=== PATIENT | female | born 1985 | race Caucasian/White ===

== ENCOUNTER 2020-08-07 15:06 | Outpatient (REF) | payer OTHER, SELFPAY ==
[2020-08-08 21:57] LABS: C. trachomatis RNA TMA NOT DETECTED (NOT DETECTED); N. gonorrhoeae RNA TMA NOT DETECTED (NOT DETECTED)
== END 2020-08-07 15:07 | disposition home or self-care (01) ==
LOC: HO.LAB 15:06
PROVIDERS: PCP Internal Medicine; Referring Provider Internal Medicine; Visit Provider Advanced Practice Midwife
DX: Z01.411 Encounter for gynecological examination (general) (routine) with abnormal findings (principal); N80.9 Endometriosis, unspecified; Z20.2 Contact with and (suspected) exposure to infections with a predominantly sexual mode of transmission
CPT/HCPCS: 87491; 87591

== ENCOUNTER 2021-06-12 11:37 | Outpatient (REF) | payer OTHER, SELFPAY ==
[2021-06-12 16:34] LABS: Hematocrit 42.3 % (37.0-47.0); Hemoglobin 14.2 g/dl (12.0-16.0); Mean Corpuscular HGB Conc 33.6 g/dl (31.0-35.0); Mean Corpuscular Hemoglobin 31.1 pg (27.0-33.0); Mean Corpuscular Volume 92.6 fL (80.0-98.0); Mean Platelet Volume 10.9 fL (9.4-12.3); Platelet Count 276 X10*3/uL (160-400); Red Blood Count 4.57 X10*6/uL (4.20-5.50); White Blood Count 8.9 X10*3/uL (4.8-10.8)
[2021-06-12 17:42] LABS: TSH reflex Free T4 1.73 uIU/mL (0.32-4.0)
[2021-06-12 17:43] LABS: HCG Quantitative 3 mIU/mL
[2021-06-13 10:09] LABS: CT PCR NOT DETECTED (Not Detect.); NG PCR NOT DETECTED (Not Detect.)
== END 2021-06-12 11:38 | disposition home or self-care (01) ==
LOC: HO.LAB 11:37
PROVIDERS: PCP Internal Medicine; Visit Provider Obstetrics & Gynecology
DX: Z11.3 Encounter for screening for infections with a predominantly sexual mode of transmission (principal); N93.9 Abnormal uterine and vaginal bleeding, unspecified; N80.9 Endometriosis, unspecified
CPT/HCPCS: 36415; 84443; 84702; 85027; 87491; 87591

== ENCOUNTER 2021-07-24 10:07 | Outpatient (REF) | payer OTHER, SELFPAY ==
--- NOTE | ~2021-07-24 | US_ITS ---
EXAMINATION: US PELVIS CLINICAL INFORMATION: Abnormal uterine and vaginal bleeding. COMPARISON: History of endometritis. TECHNIQUE: Ultrasound of the pelvis is performed using both transabdominal and transvaginal transducers along with Doppler. Transvaginal imaging is performed due to inadequate visualization transabdominally. FINDINGS: Uterus: The uterus is anteverted and measures 8.5 cm in length, 3.7 cm AP and 4.1 cm in transverse dimension. The double wall endometrial thickness is 0.58 cm. The uterus is smooth in contour and has normal myometrial echogenicity. No visible fibroid. Adnexa: Both ovaries are visualized. There is normal color flow to the adnexa. There is no ovarian torsion. There is no pelvic ascites or fluid collection. Right ovary measures 3.3 x 1.5 x 1.7 cm cm. Volume 4.5 mL. Left ovary measures 3.8 x 2.2 x 2.1 cm. Volume 8.9 mL. There is solid isoechoic to hyperechoic lesion in the left ovary measuring 1.7 x 1.7 x 1.7 cm likely hemorrhagic cyst or corpus luteal cyst. There is no free fluid in the cul-de-sac. US/US pelvic and transvaginal IMPRESSION: Isoechoic to hyperechoic solid lesion left ovary likely hemorrhagic or corpus luteal cyst. Recommend follow-up ultrasound pelvis after 2 or 3 cycles.
== END 2021-07-24 10:08 | disposition home or self-care (01) ==
LOC: HO.HMGCX 10:07
PROVIDERS: PCP Internal Medicine; Visit Provider Obstetrics & Gynecology
DX: N93.9 Abnormal uterine and vaginal bleeding, unspecified (principal)
CPT/HCPCS: 76830; 76856

== ENCOUNTER 2021-07-31 10:17 | Outpatient (REF) | payer OTHER, SELFPAY | END 2021-07-31 10:18 | disposition home or self-care (01) | LOC: HO.LAB 10:17 | PROVIDERS: PCP Internal Medicine; Visit Provider Obstetrics & Gynecology | DX: N93.9 Abnormal uterine and vaginal bleeding, unspecified (principal) | CPT/HCPCS: 58100; 88305 ==

== ENCOUNTER → 2021-08-15 15:29 | Outpatient (BNVA) | payer OTHER, SELFPAY | PROVIDERS: PCP Internal Medicine; Visit Provider Obstetrics & Gynecology ==

== ENCOUNTER 2021-08-29 08:34 | Outpatient (REF) | payer OTHER, SELFPAY ==
[2021-08-29 09:50] LABS: HCG Quantitative < 2 mIU/mL
== END 2021-08-29 08:35 | disposition home or self-care (01) ==
LOC: HO.LAB 08:34
PROVIDERS: PCP Internal Medicine; Visit Provider Obstetrics & Gynecology
DX: N93.9 Abnormal uterine and vaginal bleeding, unspecified (principal)
CPT/HCPCS: 36415; 84702

== ENCOUNTER → 2021-08-30 10:59 | Outpatient (BNVA) | payer OTHER, SELFPAY | PROVIDERS: PCP Internal Medicine; Visit Provider Obstetrics & Gynecology ==

== ENCOUNTER 2021-10-15 15:25 | Outpatient (REF) | payer OTHER, SELFPAY ==
--- NOTE | ~2021-10-15 | US_ITS ---
EXAMINATION: US PELVIS CLINICAL INFORMATION: This is a 35-year-old female with an ovarian cyst. History of endometriosis. History of tubal ligation. COMPARISON: Comparison is made to the previous study dated 07/24/2021 TECHNIQUE: Ultrasound of the pelvis is performed using both transabdominal and transvaginal transducers along with Doppler. Transvaginal imaging is performed due to inadequate visualization transabdominally. FINDINGS: Uterus: The uterus is anteverted and anteflexed and measures 6.8 x 3.5 x 4.4 cm. The double wall endometrial thickness is 0.5 mm. The uterus is smooth in contour and has normal myometrial echogenicity. No visible fibroid. Adnexa: Both ovaries are visualized. There is normal color flow to the adnexa. There is no ovarian torsion. There is no pelvic ascites or fluid collection. Right ovary measures 2.4 x 1.4 x 1.3 cm. The volume is 2.3 mL. Previously, the right ovary measures 3.3 x 1.5 x 1.7 cm for a volume of 4.5 mL. Left ovary measures 1.8 x 1.5 x 1.8 cm. Volume is 2.5 mL. Previously the left ovary measured 3.8 x 2.2 x 2.1 cm for a volume of 8.9 mL. The previously identified solid mass in the left ovary is not apparent on the current study. US/US pelvic and transvaginal IMPRESSION: Normal study.
== END 2021-10-15 15:26 | disposition home or self-care (01) ==
LOC: HO.US 15:25
PROVIDERS: PCP Internal Medicine; Visit Provider Obstetrics & Gynecology
DX: N83.299 Other ovarian cyst, unspecified side (principal); N93.9 Abnormal uterine and vaginal bleeding, unspecified
CPT/HCPCS: 76830; 76856

== ENCOUNTER → 2021-10-24 14:34 | Outpatient (BNVA) | payer OTHER, SELFPAY | PROVIDERS: PCP Internal Medicine; Visit Provider Obstetrics & Gynecology | DX: Z13.89 Encounter for screening for other disorder (principal) ==

== ENCOUNTER 2022-09-27 08:20 | Outpatient (REF) | payer OTHER, SELFPAY ==
[2022-09-27 08:37] LABS: MANUAL DIFF FLAG NO
[2022-09-27 08:51] LABS: Basophils Absolute Auto 0.1 X10*3/uL (0.0-0.2); Basophils Percent Auto 0.7 % (0-2); Eosinophils Absolute Auto 0.3 X10*3/uL (0.0-0.4); Eosinophils Percent Auto 2.9 % (0-4); Hemoglobin 14.1 g/dl (12.0-16.0); Imm Gran Abs Auto 0.03 X10*3/uL (0.00-0.03); Imm Gran Pct Auto 0.3 % (0.0-0.4); Lymphocytes Percent Auto 32.1 % (20-40); Mean Corpuscular HGB Conc 32.8 g/dl (31.0-35.0); Mean Corpuscular Hemoglobin 29.6 pg (27.0-33.0); Mean Corpuscular Volume 90.1 fL (80.0-98.0); Mean Platelet Volume 10.2 fL (9.4-12.3); Monocytes Absolute Auto 0.5 X10*3/uL (0.1-1.2); Neutrophils Absolute Auto 5.5 x10*3/uL (2.0-8.3); Platelet Count 327 X10*3/uL (160-400); Red Blood Count 4.77 X10*6/uL (4.20-5.50); Red Cell Distribution Width 12.5 % (11.0-16.0); White Blood Count 9.2 X10*3/uL (4.8-10.8)
[2022-09-27 09:30] LABS: Alanine Aminotransferase 14 U/L (0-31); Albumin Level 3.9 g/dL (3.5-5.0); Alkaline Phosphatase 50 U/L (39-117); Anion Gap 14 (12-20); Aspartate Amino Transferase 15 U/L (5-31); Bilirubin Total 0.6 mg/dL (0.0-1.0); Blood Urea Nitrogen 7 mg/dL (9-16); Calcium 8.7 mg/dL (8.4-10.2); Carbon Dioxide 20 mmol/L (22-29); Chloride 111 mmol/L (96-108); Cholesterol 210 mg/dL; Estimated Glomerular Filt Rate > 60; Glucose Fasting 85 mg/dL (60-99); HDL Cholesterol 42 mg/dL; LDL Cholesterol Calculated 143 mg/dl; Potassium 4.6 mmol/L (3.3-5.1); Sodium 140 mmol/L (135-145); Total Protein 6.3 g/dL (6.5-8.0); Triglycerides 126 mg/dL
[2022-09-27 09:39] LABS: HBS Num1 21.29 mIU/mL (0-7.99); HBc Num1 0.07 S/CO (0.00-0.79); HBsAGNum1 0.24 S/CO (0.00-0.99); Hepatitis B Core Antibody Nonreactive (Nonreactive); Hepatitis B Surface Antigen Negative (Negative); ~HepC Num1 0.07 S/CO (0.00-0.79); ~Hepatitis B Surface Antibody REACTIVE (Nonreactive); ~Hepatitis C Antibody Nonreactive (Nonreactive)
[2022-09-29 23:13] LABS: TS Negative Control Passed; TS Panel A 0; TS Panel B 1; TS Positive Control Passed; TSpotTB Negative (Negative)
[2022-10-01 05:24] LABS: Rubeola IgG (Measles) >300.00 AU/mL
== END 2022-09-27 08:21 | disposition home or self-care (01) ==
LOC: HO.LAB 08:20
PROVIDERS: Absent Provider Nurse Practitioner Family; PCP Internal Medicine; Visit Provider Internal Medicine
DX: Z02.0 Encounter for examination for admission to educational institution (principal); R79.89 Other specified abnormal findings of blood chemistry
CPT/HCPCS: 36415; 80053; 80061; 84443; 85025; 86481; 86704; 86706; 86735; 86762; 86765; 86787; 86803; 87340

== ENCOUNTER 2023-03-10 12:40 | Outpatient (REF) | payer OTHER, SELFPAY ==
[2023-03-14 06:09] LABS: HPV mRNA E6/E7 rflx Not Detected (Not Detected)
== END 2023-03-10 12:41 | disposition home or self-care (01) ==
LOC: HO.LNP 12:40
PROVIDERS: PCP Internal Medicine; Visit Provider Obstetrics & Gynecology
DX: Z01.419 Encounter for gynecological examination (general) (routine) without abnormal findings (principal); N93.9 Abnormal uterine and vaginal bleeding, unspecified
CPT/HCPCS: 87624; 88142

== ENCOUNTER 2023-03-10 12:40 | Outpatient (AMB) | payer OTHER, SELFPAY ==
--- NOTE | 2023-03-10 12:42 | MHC.OFFVIS ---
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 No complaints. The patient is on Seasonique for control of of nighttime bleeding, has been diagnosed with migraine headaches with aura Last Pap/HPV was negative in 06/28 [facility] Medical History Acute sinusitis Migraine with aura Surgical History History of bilateral tubal ligation History of loop electrical excision procedure (LEEP) Hx of wisdom tooth extraction Family History Maternal Grandfather Bladder cancer Sister Multiple sclerosis Paternal Grandmother Breast cancer Social History Housing: Condominium Alcohol intake: never Patient Tobacco Use Status: Former Tobacco user Tobacco use type: Cigarette Years Smoked: pt states quit 2014 service: No Current occupational status: employed and student Gender identity: Female Cognitive needs: No Hearing needs: No Vision needs: Yes Female Reproductive History Menstrual Age of Menarche: 11 control method: pills and permanent sterilization Permanent Sterilization: BTL Total pregnancies: 1 Full term: 1 Number of Living Children: 1 Date of last pap smear: 06/24/18 (neg pap and hpv) History of abnormal pap smear: Yes (leep 2008) Review of Systems Const All systems reviewed & are unremarkable except as noted in HPI and below Card Reports as per HPI Resp Reports as per HPI GI Reports as per HPI and Reports no additional complaints Reports as per HPI Physical Exam Vital Signs: BMI result Body Mass Index 28.2 Const General: cooperative, healthy appearing and comfortable Chest Chest palpation & inspection: normal inspection of the chest and normal palpation of entire chest wall Breast/axilla inspection: normal inspection of the breasts and normal inspection of the axillae Breast/axilla palpation: normal palpation of the breasts, normal palpation of the axillae and no axillary lymphadenopathy Resp Effort & Inspection: normal respiratory effort Auscultation: clear to auscultation bilaterally Percussion: percussion normal Cardio Palpation: normal PMI Rate: regular rate Rhythm: regular rhythm Heart sounds: no murmurs and no rubs Peripheral pulses: Peripheral pulses 2+ throughout GI Inspection: Yes normal to inspection Palpation (GI): Soft to palpation, nontender, no guarding, not rigid and No hepatosplenomegaly present Percussion: Yes normal to percussion Auscultation: normal bowel sounds Rectal Exam - Female: deferred General: Yes bladder normal to palpation External Female Exam: No lesion Speculum Exam - Vagina: normal appearance of the vagina, normal palpation, normal vaginal discharge and not erythematous Speculum Exam - Cervix: normal appearance of the cervix and normal palpation Bimanual exam- vagina & uterus: normal bimanual exam, normal palpation, uterine size normal, bladder normal to palpation, consistency normal and normal palpation Bimanual Exam- Adnexa, other: normal adnexae, no masses and no tenderness Assessment & Plan Assessment & Plan (1) Well woman exam with routine gynecological exam: Code(s): Z01.419 - Encounter for gynecological examination (general) (routine) without abnormal findings Plan: Cotesting done. Counseled the patient about the recommended dietary allowance of 1000 mg of Calcium & 600 IU of vitamin D. The patient was instructed to perform monthly self-breast exams and to schedule an annual exam in a year; All questions answered and the patient verbalized understanding. Instructed the patient to schedule annual exam in a year (2) Abnormal uterine bleeding: Code(s): N93.9 - Abnormal uterine and vaginal bleeding, unspecified Plan: Discussed with patient the risk of control pills with migraine aura, increasing the risk of stroke. Recommended patient to discontinue his season coushatta LOUIE and switched to Provera 10 mg p.o. q.day 15-24 cyclicly. Instructions given the patient is scheduled at 3 months of Provera follow-up appointment. All questions answered, the patient verbalized understanding to the plan Orders: Orders Pap Smear Today Z01.419 - Encounter for gynecological examination (general) (routine) without abnormal findings Medications: New medroxyprogesterone (Provera) start Provera 1 tablet daily from day 15-24 cyclically every months, day 1 being 1st day of menses 10 mg PO DAILY 30 tabs 0RF 10 days Discontinued L norgest/e.estradiol-e.estrad 0.15 mg-30 mcg (84)/10 mcg (7) (Seasonique) Discontinued Reason: Doctor's Order 1 tab PO DAILY 84 ea 0RF 84 days Coding Level of Care Code Est Pt Prev Care 18-39y(37930) Diagnoses Well woman exam with routine gynecological exam Z01.419 Abnormal uterine bleeding N93.9
[2023-03-10 12:43] VITALS: BP 100/66; BMI 28.2
== END 2023-03-10 13:23 | disposition home or self-care (01) ==
LOC: HO.HWS 12:40
PROVIDERS: PCP Internal Medicine; Visit Provider Obstetrics & Gynecology
DX: Z01.419 Encounter for gynecological examination (general) (routine) without abnormal findings (principal); N93.9 Abnormal uterine and vaginal bleeding, unspecified
CPT/HCPCS: 99395

== ENCOUNTER 2023-03-20 15:31 | Outpatient (AMB) | payer OTHER, SELFPAY ==
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
[2023-03-20 15:41] VITALS: BP 120/82; PULSE 111; O2SAT 98; BMI 27.8
== END 2023-03-20 16:56 | disposition home or self-care (01) ==
PROVIDERS: PCP Internal Medicine; Visit Provider Internal Medicine
DX: E78.00 Pure hypercholesterolemia, unspecified (principal); D22.9 Melanocytic nevi, unspecified; G43.109 Migraine with aura, not intractable, without status migrainosus; F41.1 Generalized anxiety disorder; E66.3 Overweight
CPT/HCPCS: 99214

== ENCOUNTER 2023-07-01 14:07 | Outpatient (AMB) | payer OTHER, SELFPAY ==
--- NOTE | 2023-07-01 14:10 | A.OFFVIS_ITS ---
Intake Vital Signs 07/01/23 14:12 Height 5 ft 1 in Weight 147 lb BMI 27.8 BP 114/70 Intake Visit Reasons: follow up/DO NOT RS Service Order Dispatcher Required: No Allergies No Known Allergies [No Known Allergies*] Allergy (Verified 07/01/23 14:13) Is last menstrual period known: Yes Last menstrual period: 07/01/23 Post menopausal: No HPI HPI Comments History of Present Illness Details Presenting for follow-up after 3 months trial of cyclic Provera 10 mg p.o. q.d. day 15-24. The patient is doing well her menstrual cycles are regular but is having some mood changes, the patient is not sure if this is her stresses in her life currently ore Provera side effect PFSH Medical History Migraine with aura Acute sinusitis Surgical History History of bilateral tubal ligation Hx of wisdom tooth extraction History of loop electrical excision procedure (LEEP) Family History Maternal Grandfather Bladder cancer Sister Multiple sclerosis Paternal Grandmother Breast cancer Housing: Condominium Alcohol intake: never Patient Tobacco Use Status: Former Tobacco user Tobacco use type: Cigarette Years Smoked: pt states quit 2014 e-Cigarette/Vaping Use: Never Used Second Hand Smoke Exposure: No service: No Current occupational status: employed and student Gender identity: Female Cognitive needs: No Hearing needs: No Vision needs: Yes Female Reproductive History Menstrual Age of Menarche: 11 Date of last menstrual period: 07/01/23 control method: permanent sterilization Date of last pap smear: 03/11/23 (negative) Review of Systems Const All systems reviewed & are unremarkable except as noted in HPI and below Reports as per HPI and Reports no additional complaints GI Reports no additional complaints Reports no additional complaints Physical Exam Vital Signs: Last Vital Signs BP 114/70 07/01/23 14:12 BMI result Body Mass Index 27.8 Assessment & Plan Assessment & Plan (1) Abnormal uterine bleeding: Code(s): N93.9 - Abnormal uterine and vaginal bleeding, unspecified Plan: Discussed different options of treatment other stating on cyclic Provera versus endometrial ablation or Mirena IUD or pros and cons, risks and benefits of each were discussed with the patient, the patient decided to stay on cyclic Provera, refill of 10 mg p.o. q.d. day 15-24 was sent to patient's pharmacy. Instructions given the patient to call back if mood changes CT worse or persist. All questions answered, the patient verbalized understanding Orders: Orders MM screening mammo BI Today Z12.31 - Encounter for screening mammogram for malignant neoplasm of breast Medications: Refilled medroxyprogesterone (Provera) start Provera 1 tablet daily from day 15-24 cyclically every months, day 1 being 1st day of menses 10 mg PO DAILY 10 days 30 tabs 3RF Coding Level of Care Code Est Pt Level 3 (62493) Diagnoses Abnormal uterine bleeding N93.9
[2023-07-01 14:12] VITALS: BP 114/70; BMI 27.8
== END 2023-07-01 14:42 | disposition home or self-care (01) ==
LOC: HO.HWS 14:07
PROVIDERS: PCP Internal Medicine; Visit Provider Obstetrics & Gynecology
DX: N93.9 Abnormal uterine and vaginal bleeding, unspecified (principal)
CPT/HCPCS: 99213

== ENCOUNTER → 2023-07-01 14:07 | Outpatient (BNVA) | payer OTHER, SELFPAY | PROVIDERS: PCP Internal Medicine; Visit Provider Obstetrics & Gynecology ==

== ENCOUNTER 2023-07-11 10:53 | Outpatient (AMB) | payer OTHER, SELFPAY ==
[2023-07-11 10:54] VITALS: BP 102/70; PULSE 74; O2SAT 100; BMI 26.6
--- NOTE | 2023-07-11 10:54 | A.OFFPC_ITS ---
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 Allergies No Known Allergies [No Known Allergies*] Allergy (Verified 07/11/23 10:55) Medication List - Last Reconciled 07/11/23 by Dayron Knight MD apple cider vinegar mg PO ascorbic acid (vitamin C) 1 g PO Q6H ashwagandha extract mg PO medroxyprogesterone (Provera) 10 mg PO DAILY 10 days multivitamin 1 tab PO DAILY sumatriptan succinate (Imitrex) 50 mg PO .QD PRN Tobacco use date assessed: 07/11/23 Dental Screening Dental Screen Date: 07/11/23 Did you have a dental visit in the last 12 months?: No Did you have a dental problem in the last 6 months where you did not have access to dental care?: No Was dental information given to patient?: Patient has dentist HPI PE HPI Details 37-year-old female with hypercholesterol emia migraine and generalized anxiety disorder last seen in March 2023 patient has a history of abnormal uterine bleeding and is being treated with cyclic Provera 10 mg once a day 15-24 , dizzy - - when anxious PFSH Medical History Migraine with aura Acute sinusitis Surgical History History of bilateral tubal ligation Hx of wisdom tooth extraction History of loop electrical excision procedure (LEEP) Family History Maternal Grandfather Bladder cancer Sister Multiple sclerosis Paternal Grandmother Breast cancer Social History (Updated 07/11/23 @ 11:44 by Dayron Knight MD) Housing: Condominium Alcohol intake: never Comment: 1day a week - 3-4 drinks Patient Tobacco Use Status: Former Tobacco user Tobacco use type: Cigarette Years Smoked: pt states quit 2014 e-Cigarette/Vaping Use: Never Used Second Hand Smoke Exposure: No service: No Current occupational status: employed and student Gender identity: Female Cognitive needs: No Hearing needs: No Vision needs: Yes Female Reproductive History Menstrual Age of Menarche: 11 Questionnaire PHQ-9 Over the last 2 weeks, how often have you been bothered by any of the following problems? 1. Little interest or pleasure in doing things: not at all 2. Feeling down, depressed, or hopeless: nearly every day 3. Trouble falling or staying asleep, or sleeping too much: more than half the days 4. Feeling tired or having little energy: more than half the days 5. Poor appetite or overeating: more than half the days 6. Feeling bad about yourself - or that you are a failure or have let yourself or your family down: not at all 7. Trouble concentrating on things, such as reading the newspaper or watching television: several days 8. Moving or speaking so slowly that other people could have noticed. Or the opposite - being so fidgety or restless that you have been moving around a lot more than usual: more than half the days 9. Thoughts that you would be better off or of hurting yourself in some way: not at all Total score: 12 Depression Screening Interpretation: Positive Depression Screening Done: Yes 86050 - PHQ-9 Billing: Yes Source: Developed by Drs. Franko Escobar, Alfreda Becerra, Perez Fairbanks and colleagues, with an educational manoj from [employer]. Thrive Questionnaire Date Thrive assessed: 03/20/23 AUDIT C Alcohol Use Questionnaire (AUDIT-C) 1. How often do you have a drink containing alcohol?: Never 2. How many drinks containing alcohol do you have on a typical day when you are drinking?: 1 or 2 (0) 3. How often do you have six or more drinks on one occasion?: Never Total Score: 0 Score Reviewed/Action Taken: No MARITZA-7 AMB Questionnaire MARITZA-7 Date MARITZA - 7 assessed: 07/11/23 ([facility] [employer] and work ) Feeling nervous, anxious, or on edge: 1 = Several days Not being able to stop or control worryin = Several days Worrying too much about different things: 1 = Several days Trouble relaxin = Nearly every day Being so restless that it is hard to sit still: 1 = Several days Becoming easily annoyed or irritable: 1 = Several days Feeling afraid as if something awful might happen: 0 = Not at all Total MARITZA-7 score (0-4 normal; 5-9 mild; 10-14 moderate; 15-21 severe): 8 Source: Developed by Drs. Franko Escobar, Alfreda Becerra, Perez Fairbanks and colleagues, with an educational manoj from [employer]. MARITZA-7 Assessment Billing MARITZA-7 Assessment Tool: MARITZA-7 Assessment 33669 Review of Systems Const Denies poor appetite and Denies weakness Eyes Denies no additional complaints ENT Reports Normal hearing present, Denies dizziness, Denies nasal congestion, Denies tinnitus and Denies sore throat Card Denies chest pain, Denies syncope, Denies rapid heart rate and Denies dyspnea Resp Denies cough and Denies dyspnea GI Denies change in stool character, Reports constipation, Denies diarrhea, Denies nausea and Denies vomiting Denies urinary frequency, Denies difficulty voiding and Denies dysuria Neuro Reports Normal hearing present, Denies confusion, Denies dizziness, Denies syncope and Denies weakness Psych Denies confusion Physical exam (Primary Care) Vital Signs: Last Vital Signs Pulse 74 07/11/23 10:54 BP 102/70 07/11/23 10:54 Pulse Ox 100 07/11/23 10:54 Oxygen Delivery Method Room Air 07/11/23 10:54 BMI result Body Mass Index 26.6 Tobacco/Smoking Status: Tobacco use Status Tobacco use date assessed 07/11/23 07/11/23 10:55 Patient Tobacco Use Status Former Tobacco user 07/11/23 10:55 Tobacco use type Cigarette 07/11/23 10:55 e-Cigarette/Vaping Use Never Used 07/11/23 10:55 PHQ-9: PHQ-9 Score PHQ-9: Total score 12 07/11/23 11:07 Depression Screening Interpretation: Positive Thrive Assessment: Date of Thrive Assessment Date Thrive assessed 03/20/23 07/11/23 10:55 Const General: No confusion Orientation/consciousness: No confusion HENMT Head: Yes normocephalic Ears: external ears normal and TM's normal bilaterally Face and sinus: Yes normal facial exam Mouth: moist mucous membranes Throat: Yes tonsils normal Eyes Conjunctivae: conjunctivae normal Pupils: Equal, round and reactive pupils present and Pupil accommodation reflex normal Direct Ophthalmoscopy: normal light reflex Neck Neck: No lymphadenopathy Thyroid: Thyroid normal Chest Chest palpation & inspection: normal inspection of the chest Resp Effort & Inspection: normal respiratory effort and no audible wheezes Auscultation: clear to auscultation bilaterally, no crackles, no wheezes and lung sounds not diminished Cardio Rate: regular rate Rhythm: regular rhythm Peripheral pulses: radial pulses present and dorsalis pedis present GI Palpation (GI): no masses Auscultation: normal bowel sounds and normoactive bowel sounds Rectal Exam - Female: deferred Skin General skin exam: no rashes or lesions noted Rashes: no rashes Neuro General: No confusion Cranial nerves: Yes Equal, round and reactive pupils present and Yes Normal hearing present Cognition (Neuro): normal cognition Gait exam (Neuro): Normal gait present Motor exam (neuro): 5/5 motor strength present throughout Deep tendon reflexes (DTR's): Right brachioradialis reflex intensity grade: 2+, Left brachioradialis reflex intensity grade: 2+, Right patellar reflex intensity grade: 2+ and Left patellar reflex intensity grade: 2+ Extrem General: No edema Assessment and Plan Assessment & Plan (1) Adult general medical exam: Code(s): Z00.00 - Encounter for general adult medical examination without abnormal findings (2) Hypercholesterolemia: Code(s): E78.00 - Pure hypercholesterolemia, unspecified Plan: Avoid fried foods, chicken skin, eggs, butter margarine, pastries and meat. Be it pork or beef they have a lot of cholesterol LDL goal of less than 130 and triglyceride of less than 150 (3) Migraine with aura: Code(s): G43.109 - Migraine with aura, not intractable, without status migrainosus Plan: Discussed about adequate sleep, keep active keep well-hydrated and eat healthy (4) Generalized anxiety disorder: Comment: decline counselling Code(s): F41.1 - Generalized anxiety disorder Plan: Stable (5) Abnormal uterine bleeding: Code(s): N93.9 - Abnormal uterine and vaginal bleeding, unspecified Plan: Patient follows up with Gynecology Medications: New escitalopram oxalate (Lexapro) 5 mg PO DAILY 30 tabs 1RF F41.1 - Generalized anxiety disorder alprazolam 0.25 mg PO DAILY 14 tabs 0RF F41.1 - Generalized anxiety disorder Coding Level of Care Code Est Pt Prev Care 18-39y(82719) Diagnoses Adult general medical exam Z00.00 Hypercholesterolemia E78.00 Migraine with aura G43.109 Generalized anxiety disorder F41.1 Abnormal uterine bleeding N93.9 Additional Codes MARITZA-7 Assessment Billing - MARITZA-7 Assessment Tool: MARITZA-7 Assessment 28425 ([id number])
== END 2023-07-11 11:58 | disposition home or self-care (01) ==
PROVIDERS: Visit Provider Internal Medicine
DX: Z00.00 Encounter for general adult medical examination without abnormal findings (principal); E78.00 Pure hypercholesterolemia, unspecified; G43.109 Migraine with aura, not intractable, without status migrainosus; F41.1 Generalized anxiety disorder; N93.9 Abnormal uterine and vaginal bleeding, unspecified
CPT/HCPCS: 96127; 99395

== ENCOUNTER 2023-09-18 14:54 | Outpatient (REF) | payer OTHER, SELFPAY ==
[2023-09-21 17:17] LABS: TSpotTB Invalid (Negative)
== END 2023-09-18 14:55 | disposition home or self-care (01) ==
LOC: HO.LAB 14:54
PROVIDERS: PCP Internal Medicine; Visit Provider Internal Medicine
DX: Z02.0 Encounter for examination for admission to educational institution (principal)
CPT/HCPCS: 36415; 86481

== ENCOUNTER 2023-09-23 13:57 | Outpatient (REF) | payer OTHER, SELFPAY ==
[2023-09-25 22:58] LABS: TS Negative Control Passed; TS Panel A 1; TS Panel B 0; TS Positive Control Passed; TSpotTB Negative (Negative)
== END 2023-09-23 13:58 | disposition home or self-care (01) ==
LOC: HO.LAB 13:57
PROVIDERS: PCP Internal Medicine; Visit Provider Internal Medicine
DX: Z02.0 Encounter for examination for admission to educational institution (principal)
CPT/HCPCS: 36415; 86481

== ENCOUNTER 2023-11-24 13:13 | Outpatient (REF) | payer OTHER, SELFPAY ==
--- NOTE | ~2023-11-24 | MM_ITS ---
EXAMINATION: MM SCREENING DIGITAL BREAST TOMOSYNTHESIS, BILATERAL CLINICAL INFORMATION: Screening. Asymptomatic. COMPARISON: Mammography: This is a baseline mammogram. TECHNIQUE: Digital breast tomosynthesis is performed in both the craniocaudal and mediolateral oblique views along with computer-aided detection (CAD). Synthesized 2D images are generated from the tomosynthesis. FINDINGS: There are scattered areas of fibroglandular density (ACR BI-RADS breast composition Category b). There are no significant masses, abnormal calcifications, or other abnormalities. MM/MM tomosynthesis screening BI IMPRESSION: No mammographic evidence of malignancy. ASSESSMENT: BI-RADS BI-RADS 1 - Negative RECOMMENDATION: Routine annual mammography screening. 1 year F/U This examination should not preclude the clinical evaluation of a suspicious palpable abnormality. This patient's information was entered into a reminder system with a target due date for their next mammogram.
== END 2023-11-24 13:14 | disposition home or self-care (01) ==
LOC: HO.MAMMO 13:13
PROVIDERS: PCP Internal Medicine; Visit Provider Obstetrics & Gynecology
DX: Z12.31 Encounter for screening mammogram for malignant neoplasm of breast (principal)
CPT/HCPCS: 77063; 77067

== ENCOUNTER → 2023-11-24 14:45 | Outpatient (BNV) | payer OTHER, SELFPAY | PROVIDERS: PCP Internal Medicine; Visit Provider Radiology Diagnostic Radiology | DX: Z12.31 Encounter for screening mammogram for malignant neoplasm of breast (principal) | CPT/HCPCS: 77063; 77067 ==

== ENCOUNTER 2024-05-19 13:50 | Outpatient (AMB) | payer OTHER, SELFPAY ==
--- NOTE | 2024-05-19 13:59 | A.OFFVIS_ITS ---
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 No complaints. Last Pap/HPV was negative in 04/02 Last Mammogram was BI-RADS 1 in 12/02 [facility] Medical History Migraine with aura Acute sinusitis Surgical History History of bilateral tubal ligation Hx of wisdom tooth extraction History of loop electrical excision procedure (LEEP) Family History Maternal Grandfather Bladder cancer Sister Multiple sclerosis Paternal Grandmother Breast cancer Social History Housing: Condominium Alcohol intake: never Comment: 1day a week - 3-4 drinks Patient Tobacco Use Status: Former Tobacco user Tobacco use type: Cigarette Years Smoked: pt states quit 2015 e-Cigarette/Vaping Use: Never Used Second Hand Smoke Exposure: No service: No Current occupational status: employed and student Gender identity: Female Cognitive needs: No Hearing needs: No Vision needs: Yes Female Reproductive History Menstrual Age of Menarche: 11 Date of last menstrual period: 05/02/24 control method: permanent sterilization Date of last pap smear: 03/11/23 Date of Mammogram: 11/24/23 Review of Systems Const All systems reviewed & are unremarkable except as noted in HPI and below Card Reports as per HPI Resp Reports as per HPI GI Reports as per HPI and Reports no additional complaints Reports as per HPI Physical Exam Vital Signs: Last Vital Signs BP 116/68 05/19/24 14:00 BMI result Body Mass Index 27.6 Const General: cooperative, healthy appearing and comfortable Chest Chest palpation & inspection: normal inspection of the chest and normal palpation of entire chest wall Breast/axilla inspection: normal inspection of the breasts and normal inspection of the axillae Breast/axilla palpation: normal palpation of the breasts, normal palpation of the axillae and no axillary lymphadenopathy Resp Effort & Inspection: normal respiratory effort Auscultation: clear to auscultation bilaterally Percussion: percussion normal Cardio Palpation: normal PMI Rate: regular rate Rhythm: regular rhythm Heart sounds: no murmurs and no rubs Peripheral pulses: Peripheral pulses 2+ throughout GI Inspection: Yes normal to inspection Palpation (GI): Soft to palpation, nontender, no guarding, not rigid and No hepatosplenomegaly present Percussion: Yes normal to percussion Auscultation: normal bowel sounds Rectal Exam - Female: deferred General: Yes bladder normal to palpation External Female Exam: No lesion Speculum Exam - Vagina: normal appearance of the vagina, normal palpation, normal vaginal discharge and not erythematous Speculum Exam - Cervix: normal appearance of the cervix and normal palpation Bimanual exam- vagina & uterus: normal bimanual exam, normal palpation, uterine size normal, bladder normal to palpation, consistency normal and normal palpation Bimanual Exam- Adnexa, other: normal adnexae, no masses and no tenderness Assessment & Plan Assessment & Plan (1) Well woman exam with routine gynecological exam: Code(s): Z01.419 - Encounter for gynecological examination (general) (routine) without abnormal findings Category: Medical Plan: Cotesting not indicated this year. Instructions given the patient to schedule next screening Mammogram in 12/02. Counseled the patient about the recommended dietary allowance of 1000 mg of Calcium & 600 IU of vitamin D. The patient was instructed to perform monthly self-breast exams and to schedule an annual exam in a year; All questions answered and the patient verbalized understanding. Instructed the patient to schedule annual exam in a year Coding Level of Care Code Est Pt Prev Care 40-64y(58815) Diagnoses Well woman exam with routine gynecological exam Z01.419
[2024-05-19 14:00] VITALS: BP 116/68; BMI 27.6
== END 2024-05-19 14:29 | disposition home or self-care (01) ==
PROVIDERS: PCP Internal Medicine; Visit Provider Obstetrics & Gynecology
DX: Z01.419 Encounter for gynecological examination (general) (routine) without abnormal findings (principal)
CPT/HCPCS: 99396

== ENCOUNTER → 2024-05-19 13:50 | Outpatient (BNVA) | payer OTHER, SELFPAY | PROVIDERS: PCP Internal Medicine; Visit Provider Obstetrics & Gynecology ==

== ENCOUNTER 2024-08-30 12:27 | Outpatient (AMB) | payer OTHER, SELFPAY ==
--- NOTE | 2024-08-30 12:32 | MHC.OFFWIV ---
Intake Vital Signs 08/30/24 12:33 Weight 152 lb BP 118/74 Blood Pressure Location Lt brachial Position Sitting Pulse 76 Pulse Source Pulse Oximeter Pulse Oximetry (%) 97 Oxygen Delivery Method Room Air Intake Visit Reasons: EP Bilat ear pain Intake Note: Patient here for bilat ear pain, mainly the right side and headache that has been present for about 1 week. Patient Tobacco Use Status: Former Tobacco user Allergies No Known Allergies [No Known Allergies*] Allergy (Verified 08/30/24 12:34) Do you need a note to return to daycare/school/sports/work: No PFSH Medical History (Updated 08/30/24 @ 13:17 by Penny Nettles NP) Otitis media Cerumen impaction Migraine with aura Acute sinusitis Surgical History History of bilateral tubal ligation Hx of wisdom tooth extraction History of loop electrical excision procedure (LEEP) Family History Maternal Grandfather Bladder cancer Sister Multiple sclerosis Paternal Grandmother Breast cancer Social History Housing: Condominium Alcohol intake: never Comment: 1day a week - 3-4 drinks Patient Tobacco Use Status: Former Tobacco user Tobacco use type: Cigarette Years Smoked: pt states quit 2015 e-Cigarette/Vaping Use: Never Used Second Hand Smoke Exposure: No service: No Current occupational status: employed and student Gender identity: Female Cognitive needs: No Hearing needs: No Vision needs: Yes Female Reproductive History Menstrual Age of Menarche: 11 Physical Exam Vital Signs: Last Vital Signs Pulse 76 08/30/24 12:33 BP 118/74 08/30/24 12:33 Pulse Ox 97 08/30/24 12:33 Oxygen Delivery Method Room Air 08/30/24 12:33 Const General: cooperative and no acute distress Nutritional Appearance: overweight Orientation/consciousness: patient oriented x3 HEENT Head: Yes normocephalic Ears: external ears normal and TM abnormal bulging on the right, with fluid behind the TM on the left, obstructed by cerumen on the right, perforated with bloody discharge and retracted on the right General nose exam: No nasal discharge present Face and sinus: Yes sinuses nontender Mouth: moist mucous membranes Throat: Yes postnasal drainage Resp Effort & Inspection: normal respiratory effort and able to speak in complete sentences Auscultation: clear to auscultation bilaterally, no crackles, no rales, no rhonchi and no wheezes Cardio Heart sounds: S1 normal heart sound present and S2 normal heart sound present Neuro General: patient oriented x3, gait normal and moves all extremities Psych Speech and movement: Normal speech and movement present Office Procedures Cerumen Removal From which ear canal was the cerumen removed: right Removal: irrigation Notes: patient tolerated procedure well [id number] Irrigation/Lavage Assessment & Plan Assessment & Plan (1) Cerumen impaction: Code(s): H61.20 - Impacted cerumen, unspecified ear Qualifiers: Laterality: right Qualified Code(s): H61.21 - Impacted cerumen, right ear Plan: Ears irrigated well, Pt tolerated procedure (2) Otalgia, bilateral: Code(s): H92.03 - Otalgia, bilateral Plan: Acetaminophen for pain relief (3) Otitis media: Code(s): H66.90 - Otitis media, unspecified, unspecified ear Qualifiers: Chronicity: acute Laterality: right Otitis media type: serous Recurrence: non-recurrent Qualified Code(s): H65.01 - Acute serous otitis media, right ear Plan: Ordered Abx Acetaminophen for pain relief. Medications: New amoxicillin-pot clavulanate 875-125 mg 1 tab PO BID 7 days 14 tabs 0RF H65.01 - Acute serous otitis media, right ear, H92.03 - Otalgia, bilateral acetaminophen 1,000 mg (2 x 500 mg) PO Q6H PRN 60 caps 0RF pain H65.01 - Acute serous otitis media, right ear, H92.03 - Otalgia, bilateral ciprofloxacin-dexamethasone 0.3-0.1 % 4 drps otic (ears) BID 7 days 7.5 mL 0RF H65.01 - Acute serous otitis media, right ear, H92.03 - Otalgia, bilateral Coding Level of Care Code Est Pt Level 4 (99528) Diagnoses Impacted cerumen of right ear H61.21 Laterality: right Otalgia, bilateral H92.03 Non-recurrent acute serous otitis media of right ear H65.01 Chronicity: acute Laterality: right Otitis media type: serous Recurrence: non-recurrent CPT Codes Office Procedure - CPT: 91443-Tiz Irrigation/Lavage ([id number]) Time Spent (min) 20
[2024-08-30 12:33] VITALS: BP 118/74; PULSE 76; O2SAT 97
== END 2024-08-30 13:26 | disposition home or self-care (01) ==
PROVIDERS: PCP Internal Medicine; Visit Provider Nurse Practitioner Family
DX: H92.03 Otalgia, bilateral (principal); H65.01 Acute serous otitis media, right ear; H61.21 Impacted cerumen, right ear

== ENCOUNTER → 2024-08-30 12:27 | Outpatient (BNVA) | payer OTHER, SELFPAY | PROVIDERS: PCP Internal Medicine; Visit Provider Nurse Practitioner Family | DX: H61.21 Impacted cerumen, right ear (principal); H65.01 Acute serous otitis media, right ear; H92.03 Otalgia, bilateral | CPT/HCPCS: 69209 ==

== ENCOUNTER → 2024-11-27 10:30 | Outpatient (BNV) | payer OTHER, SELFPAY | PROVIDERS: PCP Internal Medicine; Visit Provider Internal Medicine | DX: Z12.31 Encounter for screening mammogram for malignant neoplasm of breast (principal) | CPT/HCPCS: 77063; 77067 ==

== ENCOUNTER 2024-11-27 10:36 | Outpatient (REF) | payer OTHER, SELFPAY | END 2024-11-27 10:37 | disposition home or self-care (01) | LOC: HO.MAMMO 10:36 | PROVIDERS: PCP Internal Medicine; Visit Provider Internal Medicine | DX: Z12.31 Encounter for screening mammogram for malignant neoplasm of breast (principal) | CPT/HCPCS: 77063; 77067 ==